=== PATIENT | female | born 1980 | race Asian ===

== ENCOUNTER 2017-02-04 12:46 | Inpatient (IN) | payer OTHER ==
[~2017-02-04] VITALS: Ht 161.3 cm; Wt 76.2 kg
[2017-02-04 13:51] LABS: POS OBC AMNIO POS
[2017-02-04 13:52] LABS: NEG OBC AMNIO NEG
[2017-02-04] MEDS ORDERED: BUTORPHANOL 2 MG/ML VIAL. IV PRN ×2 (14:15)
[2017-02-04] MEDS ORDERED: OXYTOCIN 30 UNIT/500 ML PREMIX 500 ML IV PRN ×3 (14:15→20:15)
[2017-02-04] MEDS ORDERED: fentaNYL PF VIAL 100 MCG/2 ML VIAL IV PRN ×2 (14:15)
[2017-02-04] MEDS ORDERED: 0.9 % SODIUM CHLORIDE 10 ML DISP.SYRIN. IV PRN ×2 (14:15→20:15)
[2017-02-04] MEDS ORDERED: IBUPROFEN 600 MG TABLET. PO PRN (14:15)
[2017-02-04] MEDS ORDERED: LIDOCAINE 1% PF 30 ML VIAL. INJ PRN (14:15)
[2017-02-04] MEDS ORDERED: TERBUTALINE 1 MG/ML VIAL. SQ PRN (14:15)
[2017-02-04 14:16] VITALS: BP 118/81
[2017-02-04] MEDS ORDERED: PNV1TABL25 PO (14:16)
[2017-02-04] MEDS ORDERED: IV RINGERS,LACTATED 1000ML 1,000 ML IV SCH (15:00)
[2017-02-04 15:03] LABS: HEMATOCRIT 36.5 % (36.0-47.0); HEMOGLOBIN 12.2 g/dL (12.0-15.5); RED BLOOD COUNT 4.04 x10^6/uL (3.50-5.40); RED CELL DISTRIBUTION WIDTH 13.8 % (11.5-14.5); WHITE BLOOD COUNT 11.2 x10^3/uL (4.0-11.0)
[2017-02-04] MEDS ORDERED: HYDROcodone/APAP 5/325MG 1 TAB TABLET PO PRN (20:15)
[2017-02-04] MEDS ORDERED: ZOLPIDEM 5 MG TABLET. PO PRN (20:15)
[2017-02-04] MEDS ORDERED: SIMETHICONE 80 MG TAB.CHEW PO PRN (20:15)
[2017-02-04] MEDS ORDERED: diphenhydrAMINE HCL 25 MG CAPSULE PO PRN (20:15)
[2017-02-04] MEDS ORDERED: PHENYLEPH/MINERAL OIL/PETROLAT RECTAL OINTMENT 28GM TUBE. RC PRN (20:15)
[2017-02-04] MEDS ORDERED: BENZOCAINE 20% TOPICAL AEROSOL SPRAY 57GM CAN. TP PRN (20:15)
[2017-02-04] MEDS ORDERED: MAGNESIUM HYDROXIDE 2,400 MG/30 ML ORAL.SUSP. PO PRN (20:15)
[2017-02-04] MEDS ORDERED: ACETAMINOPHEN 325 MG TABLET. PO PRN (20:15)
[2017-02-04] MEDS ORDERED: HYDROCORTISONE 1% TOPICAL OINTMENT 30GM TUBE. TP PRN (20:15)
[2017-02-04] MEDS ORDERED: MAG HYDROX/ALUMINUM HYD/SIMETH 30 ML ORAL.SUSP PO PRN (20:15)
--- NOTE | 2017-02-04 20:18 | PDOC ---
VAGINAL DELIVERY DATE DATE: 02/04/17 TIME: 20:16 : 2 Para: 1 EDC: Feb 22, 2017 VAGINAL DELIVERY: VTX VACCUM ASSISTED: No PLACENTA: Spontaneous SEX: Female WEIGHT 5/10 Nuchal Cord: No PAIN: Local EPISIOTOMY: Yes EXTENSION: No EBL 300cc COMPLICATIONS None CONDITION Stable Signs of Intrauterine Infectio: None Shoulder Dystocia: No DIAGNOSIS TIUP del Problems: MAYA PICHARDO MD Feb 04, 2017 20:18
[2017-02-04] MEDS: IBUPROFEN 800 MG TABLET. PO SCH (22:34)
[2017-02-04 22:50] VITALS: BP 118/78
[2017-02-04 23:56] VITALS: BP 108/65
[2017-02-05] VITALS (7 sets, daily range): BP systolic 111–121; BP diastolic 69–82
[2017-02-05] MEDS: IBUPROFEN 800 MG TABLET. PO SCH ×2 (06:05→16:48)
[2017-02-05 07:29] LABS: RPR REFLEX Non Reactive (Non Reactive)
[2017-02-05] MEDS ORDERED: FERROUS SULFATE 325 MG TABLET. PO SCH (08:00)
[2017-02-06] MEDS: IBUPROFEN 800 MG TABLET. PO SCH ×2 (04:33→15:21)
[2017-02-06 04:34] VITALS: BP 117/61
[2017-02-06 11:20] VITALS: BP 102/62
[2017-02-06 15:10] VITALS: BP 110/64
--- NOTE | 2017-02-06 20:25 | PDOC ---
OB Progress Note Date of Service 02/06/17 Time of Evaluation 2020 Notes Pt. feeling well. No complaints. Lab Laboratory Tests Test 02/05/17 05:00 Hematocrit 34.6 % (36.0-47.0) Medications Current Medications Sodium Chloride (Normal Saline Flush) 3 ml QSHIFT PRN IV AFTER MEDS AND BLOOD DRAWS; Start 02/04/17 at 14:15 Ringer's Solution 1,000 ml @ 125 mls/hr Q8H IV Last administered on 02/04/17 14:41; Start 02/04/17 at 15:00; Stop 02/05/17 at 02:29; Status DC Butorphanol Tartrate (Stadol) 1 mg PRN Q1HR PRN IV mild to moderate labor pain ; Start 02/04/17 at 14:15; Stop 02/05/17 at 02:04; Status DC Butorphanol Tartrate (Stadol) 2 mg PRN Q1HR PRN IV Severe labor pain; Start at 14:15; Stop 02/05/17 at 02:04; Status DC Fentanyl Citrate (Fentanyl 2ml Vial) 50 mcg PRN Q30MIN PRN IV Mild to moderate pain; Start 02/04/17 at 14:15; Stop 02/05/17 at 02:04; Status DC Fentanyl Citrate (Fentanyl 2ml Vial) 100 mcg PRN Q30MIN PRN IV Severe pain; Start 02/04/17 at 14:15; Stop 02/05/17 at 02:04; Status DC Terbutaline Sulfate (Brethine) 0.25 mg 1X PRN PRN SQ SEE COMMENTS; Start at 14:15; Stop 02/05/17 at 14:14; Status DC Lidocaine HCl 30 ml 1X PRN PRN INJ SEE COMMENTS Last administered on 02/04/17 19:49; Start 02/04/17 at 14:15; Stop 02/06/17 at 14:14; Status DC Cefazolin Sodium/ Dextrose 50 ml @ 100 mls/hr 1X ONCE IV Last administered on 02/04/17 14:42; Start 02/04/17 at 15:00; Stop 02/05/17 at 02:04; Status DC Cefazolin Sodium 1 gm/Sodium Chloride 50 ml @ 100 mls/hr Q6H IV Last administered on 02/04/17 21:00; Start 02/04/17 at 21:00; Stop 02/04/17 at 22:45 ; Status DC Oxytocin/Sodium Chloride 500 ml @ 0 mls/hr CONT PRN PRN IV Post delivery bleeding; Start 02/04/17 at 14:15; Stop 02/05/17 at 02:04; Status DC Ibuprofen (Motrin) 600 mg PRN Q6HRS PRN PO PAIN; Start 02/04/17 at 14:15 Oxytocin/Sodium Chloride 500 ml @ 0 mls/hr CONT PRN IV SEE I/O RECORD Last administered on 02/04/17 16:46; Start 02/04/17 at 16:45; Stop 02/05/17 at 02:04 ; Status DC Sodium Chloride (Normal Saline Flush) 10 ml QSHIFT PRN IV AFTER MEDS AND BLOOD DRAWS; Start 02/04/17 at 20:15 Oxytocin/Sodium Chloride 500 ml @ 62.5 mls/hr CONT PRN IV SEE I/O RECORD; Start 02/04/17 at 20:15; Stop 02/05/17 at 04:14; Status DC Acetaminophen (Tylenol) 650 mg PRN Q6HRS PRN PO MILD PAIN / TEMP; Start at 20:15 Ibuprofen (Motrin) 800 mg Q8HRS PO Last administered on 02/06/17 15:21; Start 02/04/17 at 22:00 Magnesium Hydroxide (Milk Of Magnesia) 2,400 mg PRN DAILY PRN PO CONSTIPATION Last administered on 02/06/17 15:21; Start 02/04/17 at 20:15 Al Hydroxide/Mg Hydroxide (Mylanta Plus Xs) 30 ml PRN Q4HRS PRN PO HEARTBURN / GAS; Start 02/04/17 at 20:15 Simethicone (Gas-X) 80 mg PRN AFTMEALHC PRN PO GAS / BLOATING; Start 02/04/17 at 20:15 Diphenhydramine HCl (Benadryl) 25 mg PRN Q6HRS PRN PO ITCHING; Start 02/04/17 at 20:15 Benzocaine (Americaine) 1 spray PRN QID PRN TP TOPICAL PAIN Last administered on 02/04/17 22:35; Start 02/04/17 at 20:15 Phenyleph/Shark Oil/Min Oil/Petrol (Preparation H) 1 jayden PRN QID PRN RC RECTAL PAIN; Start 02/04/17 at 20:15 Hydrocortisone (Cortaid) 1 jayden PRN QID PRN TP RECTAL PAIN; Start 02/04/17 at 20 :15 Ferrous Sulfate (Feosol) 325 mg BIDWMEALS PO ; Start 02/05/17 at 08:00 Zolpidem Tartrate (Ambien) 5 mg PRN QHS PRN PO INSOMNIA, MAY REPEAT X1; Start 02/04/17 at 20:15 Info (Do NOT chart on this placeholder) 1 ea 1X PRN PRN MC SEE COMMENTS; Start 02/04/17 at 20:15 Acetaminophen/ Hydrocodone Bitart (Lortab 5/325) 1 tab PRN Q4HRS PRN PO PAIN; Start 02/04/17 at 20:15 Active Scripts Active Reported Tablet (Pnv Cmb#95/Ferrous Fumarate/Fa) 1 Each Tablet 1 Tab PO DAILY Exam Abd: soft,non tender, fundus firm Assessment A: PPD#2 s/p Plan of Care: See new orders (D/c home.) TERRELL TOTH Jr, MD Feb 06, 2017 20:25
--- NOTE | 2017-02-06 20:26 | DISCH ---
DISCHARGE INSTRUCTIONS Condition on Discharge Condition on Discharge: Stable Activity After Discharge Activity Instructions for Disc: Activity as tolerated Lifting Instructions after Dis: No heavy lifting Driving Instructions after Dis: Do not drive today Diet after Discharge Diet after Discharge: Regular Contacting the DRRadha after DC Call your doctor for: Concerns you may have Follow-Up Follow up with: Dr. Delcid in 2 weeks. TERRELL TOTH Jr, MD Feb 06, 2017 20:26
[2017-02-06] MEDS ORDERED: NAPR375T3 PO (20:27)
[2017-02-06 21:20] VITALS: BP 120/82
== END 2017-02-06 21:30 | disposition home or self-care (01) | DRG 775 ==
LOC: 3 SO LND 12:46 → OBSVTOIN 14:20 → 3 NORTH 22:50
PROVIDERS: ADMIT Specialist; ATTEND Specialist
PROC: 10E0XZZ Delivery of Products of Conception, External Approach (ICD-10-PCS; principal; 2017-02-04)
PROC: 0W8NXZZ Division of Female Perineum, External Approach (ICD-10-PCS; 2017-02-04)
DX: O42.02 Full-term premature rupture of membranes, onset of labor within 24 hours of rupture (principal); Z3A.38 38 weeks gestation of pregnancy; O09.523 Supervision of elderly multigravida, third trimester; Z37.0 Single live birth
CPT/HCPCS: 36415; 84112; 85014; 85027; 86593; 86850; 86900; 86901; C1887; G0378; G0379; J0690; J2590; J7120